=== PATIENT | female | born 1945 | race Native Hawaiian/Other Pacific Islander ===

== ENCOUNTER 2020-10-03 13:21 | Outpatient (CLI) | payer OTHER | END 2020-10-03 21:03 | disposition home or self-care (01) | LOC: LAB 13:21 | PROVIDERS: ATTEND Internal Medicine | DX: E78.49 Other hyperlipidemia (principal); F32.9 Major depressive disorder, single episode, unspecified | CPT/HCPCS: 80061; 84439; 84443 ==

== ENCOUNTER 2021-03-13 11:16 | Outpatient (CLI) | payer OTHER | END 2021-03-13 22:25 | disposition home or self-care (01) | LOC: US 11:16 | PROVIDERS: ATTEND Internal Medicine | DX: M79.604 Pain in right leg (principal) ==

== ENCOUNTER 2022-03-20 14:06 | Outpatient (CLI) | payer OTHER | END 2022-03-20 19:21 | disposition home or self-care (01) | LOC: RAD 14:06 | PROVIDERS: ATTEND Internal Medicine | DX: M25.561 Pain in right knee (principal); M25.571 Pain in right ankle and joints of right foot ==

== ENCOUNTER 2022-07-05 14:28 | Outpatient (CLI) | payer OTHER | END 2022-07-05 19:09 | disposition home or self-care (01) | LOC: CT 14:28 → MRI 15:00 → CT 19:09 | PROVIDERS: ATTEND Internal Medicine | DX: S89.82XA Other specified injuries of left lower leg, initial encounter (principal); W19.XXXA Unspecified fall, initial encounter; Y92.89 Other specified places as the place of occurrence of the external cause; R51.9 Headache, unspecified ==

== ENCOUNTER 2023-09-29 16:36 | Outpatient (CLI) | payer OTHER | END 2023-09-29 19:33 | disposition home or self-care (01) | LOC: RAD 16:36 | PROVIDERS: ATTEND Internal Medicine | DX: J40 Bronchitis, not specified as acute or chronic (principal) ==